=== PATIENT | female | born 1965 | race Caucasian/White ===

== ENCOUNTER → 2018-12-02 | Outpatient (REF) | payer OTHER | LOC: M LAB REF 17:12 | PROVIDERS: ATTEND Internal Medicine | DX: E03.9 Hypothyroidism, unspecified (principal) ==

== ENCOUNTER → 2019-03-25 | Outpatient (REF) | payer OTHER ==
[2019-03-25 16:52] LABS: FREE T3 3.9 PG/ML (2.2-4.0)
== END ==
LOC: M LAB REF 16:11
PROVIDERS: ATTEND Internal Medicine
DX: D64.9 Anemia, unspecified (principal); D47.01 Cutaneous mastocytosis; E03.9 Hypothyroidism, unspecified

== ENCOUNTER → 2019-05-04 | Outpatient (REF) | payer OTHER ==
[2019-05-04 18:33] LABS: BASO # 0.1 10^3/uL (0.0-0.2); BASO % 0.9 % (0.0-1.0); EOS # 0.1 10^3/uL (0.0-0.50); HEMATOCRIT 39.4 % (36.0-47.0); HEMOGLOBIN 12.3 g/dl (12.0-15.5); LYMPH # 2.8 10^3/uL (1.5-4.5); MEAN CORPUSCULAR HEMOGLOBIN 29.1 pg (27.0-33.0); MEAN CORPUSCULAR HGB CONC 31.2 g/dl (32.0-36.5); MEAN CORPUSCULAR VOLUME 93.1 fl (80.0-96.0); MONO # 0.4 10^3/uL (0.0-0.8); MONO % 7.7 % (0.0-5.0); NEUTROPHILS # 2.2 10^3/uL (1.8-7.7); NEUTROPHILS % 39.2 % (36.0-66.0); PLATELET COUNT, AUTOMATED 313 10^3/uL (150-450); RED BLOOD COUNT 4.23 10^6/uL (4.00-5.40); WHITE BLOOD COUNT 5.6 10^3/uL (4.0-10.0)
== END ==
LOC: M LAB REF 17:05
PROVIDERS: ATTEND Internal Medicine
DX: R53.83 Other fatigue (principal); D47.01 Cutaneous mastocytosis

== ENCOUNTER → 2019-09-06 | Outpatient (REF) | payer OTHER | LOC: M LAB REF 16:58 | PROVIDERS: ATTEND Internal Medicine | DX: E03.9 Hypothyroidism, unspecified (principal) ==

== ENCOUNTER → 2019-11-11 | Outpatient (REF) | payer OTHER | LOC: M LAB REF 16:23 | PROVIDERS: ATTEND Internal Medicine | DX: E03.9 Hypothyroidism, unspecified (principal) ==

== ENCOUNTER → 2020-02-08 | Outpatient (CLI) | payer OTHER ==
[2020-02-11 00:06] LABS: G6PD2 4.37 x10E6/uL (3.77-5.28)
== END ==
LOC: M LAB 13:38
PROVIDERS: ATTEND Family Medicine
DX: M41.20 Other idiopathic scoliosis, site unspecified (principal); E03.9 Hypothyroidism, unspecified; R53.82 Chronic fatigue, unspecified; J30.9 Allergic rhinitis, unspecified; N95.8 Other specified menopausal and perimenopausal disorders; K64.9 Unspecified hemorrhoids; K04.8 Radicular cyst